=== PATIENT | female | born 1950 | race Asian ===

== ENCOUNTER 2021-01-21 10:53 | Outpatient (CLI) | payer OTHER | END 2021-01-21 10:58 | disposition home or self-care (01) | LOC: SONOGRAMA 10:53 | PROVIDERS: ATTEND Pathology Anatomic Pathology & Clinical Pathology | DX: C73 Malignant neoplasm of thyroid gland (principal); D34 Benign neoplasm of thyroid gland; E04.2 Nontoxic multinodular goiter ==